=== PATIENT | male | born 1995 | race Caucasian/White ===

== ENCOUNTER 2018-03-16 09:50 | Emergency (ER) | payer SELFPAY ==
[2018-03-16] MEDS ORDERED: Sodium Chloride 0.9% 10 ML Syringe FLUSH PRN (10:47)
[2018-03-16] MEDS ORDERED: cefTRIAXone 1 GM, Lidocaine 1% 2.1 ML IM ONE ×2 (11:12)
--- NOTE | 2018-03-16 12:46 | EDM.PDOC ---
ED HPI GENERAL MEDICAL PROBLEM - General Chief Complaint: Lower Extremity Injury/Pain Stated Complaint: RT KNEE PAIN Time Seen by Provider: 03/16/18 10:35 Source of Information: Reports: Patient, RN Notes Reviewed - History of Present Illness INITIAL COMMENTS - FREE TEXT/NARRATIVE: 22-year-old male comes in with swollen painful right knee and lower leg. Started about 3 days ago and has been worsening over the last day or 2. He states he does have discomfort of the right knee, pain with motion but also there is swelling and redness of the proximal right lower leg as well. He is not aware of any particular injury. 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 There is been no major fall or injury. 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 Pain Score (Numeric/FACES): 5 - Related Data Allergies Allergy/AdvReac Type Severity Reaction Status Date / Time No Known Allergies Allergy Verified 03/16/18 10:01 Home Meds: Home Meds Cephalexin [Keflex] 500 mg PO Q6HR #40 capsule 03/16/18 [Rx] Past Medical History - Past Health History Medical/Surgical History: Denies Medical/Surgical History - Past Surgical History HEENT Surgical History: Reports: Tonsillectomy Social & Family History - Family History Family Medical History: Noncontributory - Tobacco Use Smoking Status *Q: Never Smoker - Caffeine Use Caffeine Use: Reports: Coffee, Energy Drinks, Soda - Recreational Drug Use Recreational Drug Use: No Review of Systems - Review of Systems Review Of Systems: See Below Constitutional: Denies: Chills, Fever Eyes: Reports: No Symptoms Mouth/Throat: Reports: No Symptoms Respiratory: Denies: Shortness of Breath, Cough Cardiovascular: Denies: Chest Pain GI/Abdominal: Denies: Abdominal Pain, Nausea, Vomiting Musculoskeletal: Reports: Joint Pain (Right knee), Muscle Pain (Right lower leg) Skin: Reports: Erythema (Right lower leg) Neurological: Denies: Numbness, Tingling, Weakness ED EXAM, GENERAL - Physical Exam Exam: See Below General Appearance: Alert, No Apparent Distress Eye Exam: Bilateral Eye: PERRL Throat/Mouth: Normal Inspection Head: Atraumatic Neck: Supple Respiratory/Chest: No Respiratory Distress, Lungs Clear, Normal Breath Sounds Cardiovascular: Regular Rate, Rhythm Extremities: Redness (There is erythema of the lateral aspect right knee, proximal right lower leg posteriorly, medially and laterally.), Other (There is very mild tenderness of the right knee medially and laterally, no visible effusion, mild pain with motion, there is tenderness of the proximal medial lateral and posterior musculature of the right lower leg, there is swelling of the right lower leg, measurements as recorded but about 2 cm larger in circumference than the left.) Course - Vital Signs Last Recorded V/S: Last Vital Signs Temp 97.7 F 03/16/18 09:55 Pulse 94 03/16/18 09:55 Resp 18 03/16/18 09:55 BP 149/79 H 03/16/18 09:55 Pulse Ox 98 03/16/18 09:55 - Orders/Labs/Meds Orders: Active Orders 24 hr Category Date Time Status Peripheral IV Care [RC] . DIRECTED Care 03/16/18 10:48 Active VL Duplex Lwr Ext Veins Ltd Rt [US] Stat Exams 03/16/18 10:48 Ordered Sodium Chloride 0.9% [Saline Flush] Med 03/16/18 10:47 Active 10 ml FLUSH ASDIRECTED PRN Peripheral IV Insertion Adult [OM.PC] Stat Oth 03/16/18 10:48 Ordered Medication Orders Sodium Chloride (Saline Flush) 10 ml FLUSH ASDIRECTED PRN PRN Reason: Keep Vein Open Last Admin: 03/16/18 10:56 Dose: 10 ml Labs: Laboratory Tests 03/16/18 03/16/18 03/16/18 Range/Units 11:04 11:04 11:04 WBC 9.68 H (4.23-9.07) K/mm3 RBC 5.08 (4.63-6.08) M/mm3 Hgb 14.8 (13.7-17.5) gm/L Hct 41.9 (40.1-51.0) % MCV 82.5 (79.0-92.2) fl MCH 29.1 (25.7-32.2) pg MCHC 35.3 (32.2-35.5) g/dl RDW Std Deviation 36.7 (35.1-43.9) fL Plt Count 281 (163-337) K/mm3 MPV 10.1 (9.4-12.3) fl Neutrophils % (Manual) 88 H (40-60) % Band Neutrophils % 0 (0-10) % Lymphocytes % (Manual) 12 L (20-40) % Atypical Lymphs % 0 % Monocytes % (Manual) 0 L (2-10) % Eosinophils % (Manual) 0 L (0.8-7.0) % Basophils % (Manual) 0 L (0.2-1.2) Platelet Estimate Adequate RBC Morph Comment Normal Sodium 140 (136-145) mEq/L Potassium 3.6 (3.5-5.1) mEq/L Chloride 102 (98-107) mEq/L Carbon Dioxide 29 (21-32) mEq/L Anion Gap 12.6 (5-15) BUN 7 (7-18) mg/dL Creatinine 0.8 (0.7-1.3) mg/dL Est Cr Clr Drug Dosing 152.08 mL/min Estimated GFR (MDRD) > 60 (>60) mL/min BUN/Creatinine Ratio 8.8 L (14-18) Glucose 108 H (74-106) mg/dL Calcium 8.9 (8.5-10.1) mg/dL Total Bilirubin 0.6 (0.2-1.0) mg/dL AST 15 (15-37) U/L ALT 25 (16-63) U/L Alkaline Phosphatase 63 (46-116) U/L C-Reactive Protein 3.7 H* (<1.0) mg/dL Total Protein 7.9 (6.4-8.2) g/dl Albumin 3.9 (3.4-5.0) g/dl Globulin 4.0 gm/dL Albumin/Globulin Ratio 1.0 (1-2) Meds: Medications Generic Name Dose Route Start Last Admin Trade Name Freq PRN Reason Stop Dose Admin Sodium Chloride 10 ml 03/16/18 10:47 03/16/18 10:56 Saline Flush FLUSH 10 ml ASDIRECTED PRN Administration Keep Vein Open Discontinued Medications Generic Name Dose Route Start Last Admin Trade Name Freq PRN Reason Stop Dose Admin Ceftriaxone Sodium 1 gm/ 0 gm 03/16/18 11:12 03/16/18 11:19 Lidocaine HCl 2.1 ml IM 03/16/18 11:13 1 inj ONETIME ONE Administration - Re-Assessments/Exams Free Text/Narrative Re-Assessment/Exam: 03/16/18 12:50 White blood count high normal, C-reactive protein 3.7, sound of right lower leg negative for DVT or other apparent acute abnormality. We have given Rocephin 1 g IV, and going to continue him on cephalexin 500 4 times a day, discharge instructions as documented. Departure - Departure Time of Disposition: 12:41 Disposition: Home, Self-Care 01 Condition: Fair Clinical Impression: Cellulitis of leg Qualifiers: Laterality: left Qualified Code(s): L03.116 - Cellulitis of left lower limb - Discharge Information Prescriptions: Cephalexin [Keflex] 500 mg PO Q6HR #40 capsule Referrals: PCP,None [Primary Care Provider] - Forms: ED Department Discharge, ED Return to Work/School Form Additional Instructions: Rest and elevate leg as much as possible, no work recommended for at least the next 3 days or until symptoms resolving, cephalexin antibiotic 500 mg 4 times daily for 10 days, follow-up at her [facility] in 2 days for recheck, call [phone] for appointment, return to ED as needed if symptoms worsening in any way. - My Orders Last 24 Hours: My Active Orders 03/16/18 10:47 Sodium Chloride 0.9% [Saline Flush] 10 ml FLUSH ASDIRECTED PRN 03/16/18 10:48 Peripheral IV Care [RC] . DIRECTED VL Duplex Lwr Ext Veins Ltd Rt [US] Stat Peripheral IV Insertion Adult [OM.PC] Stat - Assessment/Plan Last 24 Hours: My Active Orders 03/16/18 10:47 Sodium Chloride 0.9% [Saline Flush] 10 ml FLUSH ASDIRECTED PRN 03/16/18 10:48 Peripheral IV Care [RC] . DIRECTED VL Duplex Lwr Ext Veins Ltd Rt [US] Stat Peripheral IV Insertion Adult [OM.PC] Stat
--- NOTE | 2018-03-17 17:00 | US ---
Right lower extremity deep venous ultrasound: Duplex and color flow imaging was obtained of the right common femoral, proximal greater saphenous, superficial femoral, popliteal, posterior tibial and peroneal veins. Left common femoral vein also evaluated. Comparison: No previous venous ultrasound. Findings: Normal phasic flow, augmentation and compression are seen. Mild subcutaneous edema is noted around the right knee. Impression: 1. Mild soft tissue edema around the right knee. 2. No evidence of deep venous thrombosis within the right lower extremity or within the left common femoral vein. Diagnostic code #2 I agree with preliminary report from [facility], finalized on 03/16/18, 12:56 PM Central Time
== END 2018-03-16 12:55 | disposition home or self-care (01) ==
LOC: JD.ED 09:50
DX: L03.116 Cellulitis of left lower limb (principal)
CPT/HCPCS: 36415; 80053; 85007; 85027; 86140; 93971; 96372; 99284; J0696; 99283